=== PATIENT | female | born 1965 | race Two or more races ===

== ENCOUNTER 2023-01-19 12:55 | Emergency (ER) | payer MEDICAID, OTHER ==
[~2023-01-19] VITALS: Ht 165.1 cm; Wt 81.8 kg
[2023-01-19] MEDS ORDERED: LIDOCAINE 1% HCL (LOCAL ANESTH.) INJ 20ML MDV IJ ONE (13:30)
[2023-01-19] MEDS ORDERED: KETOROLAC TROMETH 30 MG/ML 1ML VIAL IV ONE (13:30)
[2023-01-19 14:14] VITALS: BP 127/69; PULSE 100; RESP 19; TEMP 98.4; O2SAT 97
[2023-01-19] MEDS ORDERED: cefTRIAXone 1GM/50ML D5W 50 ML IV ONE (14:45)
[2023-01-19] MEDS ORDERED: CLIN300C70 PO (15:07)
[2023-01-19] MEDS ORDERED: NAPR-746 PO (15:07)
== END 2023-01-19 15:31 | disposition home or self-care (01) ==
LOC: EDBD 12:55 → ER 12:55
DX: S61.411A Laceration without foreign body of right hand, initial encounter (principal); Z88.5 Allergy status to narcotic agent; Z88.0 Allergy status to penicillin; Z88.8 Allergy status to other drugs, medicaments and biological substances; Z91.040 Latex allergy status; W54.0XXA Bitten by dog, initial encounter; Y93.89 Activity, other specified; Y92.89 Other specified places as the place of occurrence of the external cause; Y99.8 Other external cause status
CPT/HCPCS: 12002; 73120; 96365; 96375; 99284; J0696; J1885; J2001